=== PATIENT | female | born 1950 | race Caucasian/White ===

== ENCOUNTER 2024-03-30 12:23 | Emergency (ER) | payer MEDICARE, MEDICAID, SELFPAY ==
--- NOTE | 2024-03-30 12:25 | EDNOTE_ITS ---
ED General RME/HPI General Chief complaint: Altered Mental Status Stated complaint: AMS Time Seen by Provider: 03/30/24 12:25 Arrival date/time: 03/30/24 12:23 CC: Altered mental status report from EMS from staff at the care facility where the patient resides that change in mental status started approximately 1 week ago but significant in the last 24 hours. The patient has a history of dementia and Parkinson's. Patient is currently on antibiotics for a UTI . EMS report tachycardia but otherwise stable blood pressure. EMS also report a right sided facial twitching which is new per staff at the care facility. Patient is able to answer simple questions with yes no, patient currently has no active pain. Related Data Home Medications ?Medication ?Instructions ?Recorded ?Confirmed aripiprazole 5 mg tablet 5 mg PO HS 10/30/23 10/30/23 atorvastatin 20 mg tablet 20 mg PO QDAY 10/30/23 10/30/23 buspirone 7.5 mg tablet 7.5 mg PO BID 10/30/23 10/30/23 clonazepam 1 mg tablet 1 mg PO QDAY 10/30/23 10/30/23 donepezil 10 mg tablet 10 mg PO HS 10/30/23 10/30/23 fluvoxamine 100 mg tablet 100 mg PO BID 10/30/23 10/30/23 lisinopril 40 mg tablet 40 mg PO QAM 10/30/23 10/30/23 memantine 10 mg tablet 10 mg PO BID 10/30/23 10/30/23 oxybutynin chloride 5 mg tablet 5 mg PO BID 10/30/23 10/30/23 trazodone 100 mg tablet 100 mg PO HS 10/30/23 10/30/23 Previous Rx's ?Medication ?Instructions ?Recorded amlodipine 5 mg tablet 5 mg PO QDAY #30 tabs 10/30/23 aspirin 81 mg tablet,delayed 81 mg PO QDAY #30 tabs 10/30/23 release amoxicillin 875 mg-potassium 1 tab PO BID #14 tabs 03/30/24 clavulanate 125 mg tablet Allergies Allergy/AdvReac Type Severity Reaction Status Date / Time No Known Allergies Allergy Verified 03/11/22 10:03 Review of Systems Review of Systems ROS Unobtainable: unobtainable due to mental status Past Medical History Past Medical History CARDIAC: Negative Congestive Heart Failure RESPIRATORY: Negative Chronic Obstructive Pulmonary Disease (COPD) GENITOURINARY: Negative Renal Disease ENDOCRINE: Negative Diabetes Mellitus Type 1 or Diabetes Mellitus Type 2 Social History SMOKING STATUS: Never smoker SUBSTANCE USE: does not use ED Exam Narrative Physical exam: [General: Thin but not emaciated nor decondition, appears not in any acute distress Head normocephalic HEENT: Eyes pupils are PERRLA EOMs are intact nose no rhinorrhea: Mouth: Dry membranes membranes swallow symmetrical phonation is normal. All other subsystems of HEENT are within acceptable limits Neck is supple nontender Chest equal chest rise nontender to palpation Respiratory: Clear to auscultation no wheezes crackles or rubs CV: Rate rhythm is regular no murmurs rubs or clicks Abdomen is flat, soft nontender no masses positive bowel sounds all 4 quadrants Back: No CVA tenderness no spinous process tenderness from cervical spine thoracic and lumbar spine Skin: Intact no petechiae rash induration ulceration or crepitus Extremities: Moving all extremity against resistance cap refill less than 2 seconds neurosensory intact Neuro: Awake alert oriented x1, self, Glascow coma 15 no focal deficits] Course Quality Measures none Orders Category Date Time Status Bedside COVID-19 Antigen Test NOW Care 03/30/24 12:33 Active Bedside Influenza A&B Antigen Test NOW Care 03/30/24 12:33 Completed Truck Greaser STAT Care 03/30/24 12:31 Active Continuous Pulse Oximetry STAT Care 03/30/24 12:31 Completed EKG (ED ONLY) *Do not use* NOW Care 03/30/24 12:31 Completed In and Out Catheter X1PRN Care 03/30/24 12:31 Completed Insert IV NOW Care 03/30/24 12:31 Active NPO STAT Care 03/30/24 12:31 Active Strict Intake and Output Routine Care 03/30/24 12:[address] head/brain wo con Stat Exams 03/30/24 14:03 Completed EKG (ED Only) Stat Exams 03/30/24 12:31 Draft XR chest 1V SEPSIS PROTOCOL Stat Exams 03/30/24 12:32 Completed B-Type Natriuretic Peptide Stat Lab 03/30/24 12:47 Completed Blood Culture (Lab) Stat Lab 03/30/24 12:40 Received CBC Stat Lab 03/30/24 12:47 Completed Comprehensive Metabolic Panel Stat Lab 03/30/24 12:47 Completed LDH (Lactate Dehydrogenase) Stat Lab 03/30/24 12:47 Completed Lactate (Lactic Acid) Stat Lab 03/30/24 12:47 Completed Lipase Stat Lab 03/30/24 12:47 Completed Magnesium Stat Lab 03/30/24 12:47 Completed Partial Thromboplastin Time Stat Lab 03/30/24 12:47 Completed Phosphorous Stat Lab 03/30/24 12:47 Completed Procalcitonin Stat Lab 03/30/24 12:47 Completed Prothrombin Time with INR Stat Lab 03/30/24 12:47 Completed Troponin I Stat Lab 03/30/24 12:47 Completed Urinalysis Stat Lab 03/30/24 13:00 Completed Urine Culture Stat Lab 03/30/24 13:00 Received Acetaminophen Supp [Tylenol Supp] Med 03/30/24 12:33 Discontinued 650 mg WI X1 ONE Sodium Chloride 0.9% 1000 ml [Ns] 1,000 ml Med 03/30/24 12:33 Discontinued IV 999 mls/hr cefTRIAXone/D5w 1gm IV premix [Rocephin/D5w 1gm IV Med 03/30/24 13:31 Discontinued premix] 50 ml IV X1 Oxygen Delivery NOW RT 03/30/24 12:31 Active Vital Signs Vital signs: Vital Signs Temperature 100.6 F H 03/30/24 12:37 Pulse Rate 96 03/30/24 12:37 Respiratory Rate 20 03/30/24 12:37 Blood Pressure 140/89 H 03/30/24 12:37 Pulse Oximetry (%) 97 03/30/24 12:37 Oxygen Delivery Method Room Air 03/30/24 12:37 [facility] Patient data External records reviewed:: [facility] previous records and EMS form Clinical information provided by:: patient and EMS Social determinants that could affect healthcare access:: none Patient has the following chronic illnesses:: Dementia Parkinson's, hypertension, hyperlipidemia developmentally delayed. How is presenting disease/condition affected by chronic disease/condition?: e xacerbated by Evaluation data The following diagnostics were reviewed and interpreted by me:: lab results, radiology exam(s) and EKG tracing(s) Lab and/or radiology exams considered but not ordered:: EKG performed at 1252 shows a ventricular rate of 78 WI interval 137 QRS of 89 QTc of 335 is normal sinus rhythm. CBC shows no acute leukocytosis anemia thrombocytopenia CMP shows no acute electrolyte imbalances renal impairment transaminitis or T. bili elevation Trope is negative CT of the head as interpreted by me and read by radiology as negative for any acute finding requires emergent or immediate intervention Chest x-ray shows there is a right base pneumonia as interpreted by the radiologist. Lactic and Pro-Tyson are negative. Interpretation Summary: Due to the patient's delayed mental status and base injury she is nonverbal at this time the patient will be treated for pneumonia. Given that the patient has a fever and the findings on the chest x-ray. Medications Medications considered but not ordered:: None Medication administrations:: Medication Administration History Discontinued Medications Acetaminophen (Acetaminophen Supp 650 Mg Supp) 650 mg WI X1 ONE Stop: 03/30/24 12:34 Last Admin: 03/30/24 12:42 Dose: 650 mg Documented By: AGA Sodium Chloride (Ns) 1,000 mls @ 999 mls/hr IV .Q1H1M ONE Stop: 03/30/24 13:33 Last Infusion: 03/30/24 13:41 Dose: Infused Documented By: Admin: 03/30/24 12:40 Dose: 999 mls/hr Documented By: AGA Ceftriaxone Sodium/Dextrose (Rocephin/D5w 1gm Iv Premix) 50 mls @ 100 mls/hr IV X1 ONE Stop: 03/30/24 14:00 Last Admin: 03/30/24 14:18 Dose: 100 mls/hr Documented By: KECIA None Consultations Consultation(s) initiated? (list below): No Diagnosis Differential Diagnosis ED Complaint MDM: Pneumonia UTI sepsis Most likely diagnosis given after review of the tests above:: Pneumonia Admission Indicated Admission indicated?: not indicated Explain why admission is indicated or not indicated:: Stable for discharge Admission Request Was there a request for admission?: No Disposition Plan Disposition Plan: Discharge Discharge Attestation Discharge Attestation: The patient and all family members were given an opportunity to ask questions and understood the discharge instructions. Discharge instructions specifically effects, indications for sooner follow up or return to the emergency department, and the expected course of current diagnosis. Patient condition: Stable Medical Decision Making Differential Diagnosis Differential Diagnosis: Pneumonia UTI sepsis Lab Data 03/30/24 12:47 03/30/24 12:47 Labs: Lab Results 03/30/24 03/30/24 Range/Units 12:47 13:00 WBC 8.6 (3.6-11.0) Thou/mm3 RBC 4.13 (4.00-5.20) Miln/mm3 Hgb 12.5 (12.0-16.0) g/dL Hct 37.0 (36.0-46.0) % MCV 90 (80-100) fL MCH 30.3 (25.0-35.0) pg MCHC 33.8 (31.0-37.0) g/dl RDW Std Deviation 44.7 (36.4-46.3) fL Plt Count 182 (140-440) Thou/mm3 Neut % (Auto) 81 H (37-80) % Lymph % (Auto) 10 (10-50) % [place] % (Auto) 8 (0-12) % Eos % (Auto) 0 (0-10) % Baso % (Auto) 0 (0-2.5) % Neut # (Auto) 7.0 (1.8-7.7) Thou/mm3 Lymph # (Auto) 0.8 L (1.0-4.8) Thou/mm3 [place] # (Auto) 0.7 (0.0-0.8) Thou/mm3 Eos # (Auto) 0.0 (0.0-0.5) Thou/mm3 Baso # (Auto) 0.0 (0.0-0.2) Thou/mm3 Immature Gran # (Auto) 0.04 H (0.00-0.00) Thou/mm3 Absolute Nucleated RBC 0.00 (0.00-0.00) Thou/mm3 Immature Gran % 1 H (0-0) % Nucleated RBC % 0 (0) /100 WBC PT 11.1 (9.0-12.2) Seconds INR 1.0 (0.9-1.3) APTT 32.1 (22.0-36.0) Seconds Sodium 142 (136-145) mMol/L Potassium 3.0 L (3.4-5.1) mMol/L Chloride 107 (98-107) mMol/L Carbon Dioxide 26.0 (20.0-31.0) mMol/L Anion Gap 9 (7-16) BUN 17 (9-23) mg/dL Creatinine 1.1 (0.6-1.3) mg/dL Estim Creat Clear Calc Not Performed. eGFR 53 L (60 - ) See Note BUN/Creatinine Ratio 15 (12-20) Ratio Glucose 117 H (74-106) mg/dL Calculated Osmolality 285 (275-295) Lactic Acid 2.0 (0.4-2.0) mMol/L Calcium 9.0 (8.3-10.6) mg/dL Corrected Calcium 9.0 (8.5-10.1) mg/dL Phosphorus 2.5 (2.4-5.1) mg/dL Magnesium 1.9 (1.6-2.6) mg/dL Total Bilirubin 0.3 (0.3-1.2) mg/dL AST 34 (0-34) U/L ALT 32 (10-49) U/L Alkaline Phosphatase 68 (46-116) U/L Lactate Dehydrogenase 276 H (120-246) U/L Troponin I < 0.020 (0.0-0.045) ng/mL B-Natriuretic Peptide 22 (0-100) pg/mL Total Protein 5.9 (5.7-8.2) gm/dL Albumin 4.0 (3.4-4.8) gm/dL Globulin 1.9 L (2.3-3.5) gm/dL Albumin/Globulin Ratio 2.1 (1.2-2.2) Lipase 27 (12-53) U/L Procalcitonin 0.13 (0.0-0.49) ng/ml Ur Collection Type Clean Catch Urine Color Lt-Yellow (Lt Yel-Yel) Urine Clarity Clear (Clear/Hazy) Urine pH 6.0 (5.0-7.0) Ur Specific [place] 1.020 (1.001-1.035) Urine Protein Trace (Neg - Trace) Urine Glucose (UA) Negative (Negative) Urine Ketones Negative (Negative) Urine Blood Negative (Negative) Urine Nitrite Negative (Negative) Urine Bilirubin Negative (Negative) Urine Urobilinogen (Auto) Negative (0.0-1.0) mg/dL Ur Leukocyte Esterase Negative (Negative) Urine RBC 1 (0-3) /hpf Urine WBC 1 (0-5) /hpf Ur Squamous Epith Cells < 1 (0-5) /hpf Urine Bacteria None (None) Hyaline Casts < 1 (0-1) /hpf Discharge Plan Plan Patient Disposition: HOME (Self Care) Patient condition on transfer: Stable Prescriptions/Referrals Prescriptions/Med Rec: New amoxicillin-pot clavulanate 875-125 mg tablet 1 tab PO BID Qty: 14 0RF No Action aripiprazole 5 mg Tablet 5 mg PO HS atorvastatin 20 mg Tablet 20 mg PO QDAY donepezil 10 mg Tablet 10 mg PO HS clonazepam 1 mg Tablet 1 mg PO QDAY trazodone 100 mg Tablet 100 mg PO HS fluvoxamine 100 mg Tablet 100 mg PO BID buspirone 7.5 mg Tablet 7.5 mg PO BID oxybutynin chloride 5 mg Tablet 5 mg PO BID lisinopril 40 mg Tablet 40 mg PO QAM memantine 10 mg Tablet 10 mg PO BID aspirin 81 mg tablet,delayed release (DR/EC) 81 mg PO QDAY Qty: 30 0RF amlodipine 5 mg tablet 5 mg PO QDAY Qty: 30 0RF Referrals: aLnre Rueda MD [Primary Care Provider] - In 1 week Problem List Clinical Impression: Pneumonia Patient/Caregiver Discharge Instructions Education Materials: ED Pneumonia (Adult) Additional Instructions: Take the medications as prescribed there is worsening of symptoms return the emergency room for reevaluation. Print Language: Faroese Stand Alone Forms: Berta Award Info., Work/School Release, Patient Portal Info Letter PA/ELECTRICAL INSTALLATION SUPERVISOR Supervising Physician PA/ELECTRICAL INSTALLATION SUPERVISOR Supervising Physician: Norris Irby ENP
--- NOTE | 2024-03-30 12:31 | EKG_ITS ---
[facility] Test Date: 2024-03-30 Pat Name: ALEIDA AVILA Department: Room: - Gender: Female Database Designer: : 1950 Requested By: Norris Nieto Order Number: [id number] Reading MD: Norris Nieto Measurements Intervals [place] Rate: 78 P: 25 WI: 137 QRS: 23 QRSD: 89 T: 32 QT: 302 QTc: 345 Interpretive Statements SINUS RHYTHM SEPTAL MYOCARDIAL INFARCTION , OF INDETERMINATE AGE [40+ ms Q WAVE IN V1/V2] Compared to ECG 10/28/2023 19:22:28 Myocardial infarct finding now present T-wave abnormality no longer present /store/S0/[id number]/[id number].pdf
--- NOTE | 2024-03-30 12:32 | XR_ITS ---
Examination: AP chest single view Technique one AP portable semiupright chest single view Exam date and time: March 30, 2024 1304 hours INDICATIONS: Sepsis chest pain shortness of breath today. FINDINGS: Early pneumonia right base Subsegmental atelectasis left midlung Normal heart size Prominent osteopenia No pulmonary edema IMPRESSION: Right base pneumonia
[2024-03-30 12:37] VITALS: BP 140/89; PULSE 96; RESP 20; TEMP 38.1; O2SAT 97
[2024-03-30] MEDS: SODIUM CHLORIDE 0.9% 1000 ML 1,000 ML 999 ML IV (12:40)
[2024-03-30 12:42] VITALS: TEMP 38.1
[2024-03-30] MEDS: ACETAMINOPHEN SUPP 650 MG SUPP PR (12:42)
[2024-03-30 13:04] LABS: Basophils % (Auto) 0 % (0-2.5); Eosinophils % (Auto) 0 % (0-10); Hemoglobin 12.5 g/dL (12.0-16.0); Immature Granulocytes % (Auto) 1 % (0-0); Immature Granulocytes Auto 0.04 Thou/mm3 (0.00-0.00); Lymphocytes # (Auto) 0.8 Thou/mm3 (1.0-4.8); Lymphocytes % (Auto) 10 % (10-50); Mean Corpuscular HGB Conc 33.8 g/dl (31.0-37.0); Mean Corpuscular Hemoglobin 30.3 pg (25.0-35.0); Mean Corpuscular Volume 90 fL (80-100); Monocytes # (Auto) 0.7 Thou/mm3 (0.0-0.8); Monocytes % (Auto) 8 % (0-12); Neutrophils % (Auto) 81 % (37-80); Nucleated Red Blood Cell % 0 /100 WBC (0); Platelet Count 182 Thou/mm3 (140-440); RDW Standard Deviation 44.7 fL (36.4-46.3); Red Blood Count 4.13 Miln/mm3 (4.00-5.20); White Blood Count 8.6 Thou/mm3 (3.6-11.0)
[2024-03-30 13:12] LABS: Collection Type, Urine Clean Catch
[2024-03-30 13:18] LABS: B-Type Natriuretic Peptide 22 pg/mL (0-100); Partial Thromboplastin Time 32.1 Seconds (22.0-36.0); Prothrombin Time 11.1 Seconds (9.0-12.2)
[2024-03-30 13:27] LABS: Alanine Aminotransferase 32 U/L (10-49); Albumin/Globulin Ratio 2.1 (1.2-2.2); Alkaline Phosphatase 68 U/L (46-116); Anion Gap 9 (7-16); Aspartate Amino Transferase 34 U/L (0-34); BUN/Creatinine Ratio 15 Ratio (12-20); Bilirubin,Total 0.3 mg/dL (0.3-1.2); Blood Urea Nitrogen 17 mg/dL (9-23); Chloride 107 mMol/L (98-107); Creatinine (Component) 1.1 mg/dL (0.6-1.3); Globulin 1.9 gm/dL (2.3-3.5); Glucose 117 mg/dL (74-106); LDH (Lactate Dehydrogenase) 276 U/L (120-246); Lipase 27 U/L (12-53); Magnesium 1.9 mg/dL (1.6-2.6); Osmolality,Calculated 285 (275-295); Phosphorous 2.5 mg/dL (2.4-5.1); Procalcitonin 0.13 ng/ml (0.0-0.49); Sodium 142 mMol/L (136-145); Total Protein 5.9 gm/dL (5.7-8.2); Troponin I < 0.020 ng/mL (0.0-0.045); eGFR 53 See Note
[2024-03-30 13:45] LABS: Bilirubin,Urine Negative (Negative); Blood,Urine Negative (Negative); Clarity,Urine Clear (Clear/Hazy); Color,Urine Lt-Yellow (Lt Yel-Yel); Glucose, Urine Negative (Negative); Hyaline Casts,Urine < 1 /hpf (0-1); Ketones,Urine Negative (Negative); Leukocyte Esterase,Urine Negative (Negative); Nitrite,Urine Negative (Negative); Protein,Urine Trace (Neg - Trace); RBC,Urine 1 /hpf (0-3); Squamous Epithelial Cell,Urine < 1 /hpf (0-5); Urobilinogen,Urine Negative mg/dL (0.0-1.0); WBC,Urine 1 /hpf (0-5)
--- NOTE | 2024-03-30 14:03 | XR_ITS ---
Examination: CT brain head without contrast. 2-D sagittal coronal reconstructions Date and time of exam:11/08/2023 1354 hours COMPARISON: October 28, 2023 INDICATIONS: Altered mental status today CTDI: vol (mGy):44.8 DLP: (mGycm):892 Technique: Multiple CT axial sections of the brain have been obtained, 5 mm slice thickness. Contrast has not been administered. 2-D sagittal, coronal reconstructions have been obtained Low dose protocols were performed. One or more of the following dose reduction techniques were used; automated exposure control, adjustment of the mA and/or KV according to patient size, use of iterative reconstruction technique. Findings: Stable white matter change posterior left parietal lobe Stable mild ventricular enlargement. Intra-axial or extra-axial hemorrhage density is not seen. No mass effect or midline shift Basal cisterns are not remarkable. Fourth ventricle is midline. Cranial vault intact. Impression: Negative for acute hemorrhage, mass effect or midline shift Advise clinical correlation and follow-up accordingly
[2024-03-30 14:18] VITALS: TEMP 36.9
[2024-03-30] MEDS: cefTRIAXone/D5w 1gm IV premix 50 ML IV (14:18)
[2024-03-30 14:19] VITALS: BP 147/94; PULSE 77; PULSE 83; RESP 28; TEMP 36.9; O2SAT 95
[2024-03-30 14:21] VITALS: PULSE 80; RESP 18; RESP 94
--- NOTE | 2024-03-30 16:38 | PC.CC ---
Addendum entered by Antolin Blanca II 03/30/24 17:17: 1715-Call from [facility], transport ETA of 1830 given at this time. Original Note: [employer] CC approached by bedside RN to arrange transport for pt back to residential fpc. [employer] CC met with pt and care provider at bedside. Pt will require gurney transport back [place] residential [facility] at [address] [place]. Facility staff will receive pt on return. 1623-[facility] to [facility] with request for g[facility]ney transport. Reference #[id number]. At this time transport ETA is pending. PCS and face sheet uploaded to [employer].
== END 2024-03-30 18:17 | disposition home or self-care (01) ==
PROVIDERS: Registered Nurse General Practice; Emergency Provider Emergency Medicine; PCP Family Medicine
DX: J18.9 Pneumonia, unspecified organism (principal); R94.31 Abnormal electrocardiogram [ECG] [EKG]; R41.82 Altered mental status, unspecified
CPT/HCPCS: 51701; 36415; 70450; 71045; 80053; 81001; 83605; 83615; 83690; 83735; 83880; 84100; 84145; 84484; 85025; 85610; 85730; 87040; 87086; 87400; 87811; 93005; 96361; 96365; 99284; J0696; J7030; A9270